=== PATIENT | male | born 1975 | race Hispanic/Latino ===

== ENCOUNTER 2023-10-17 23:21 | Emergency (ER) | payer MEDICAID ==
[~2023-10-17] VITALS: Ht 193 cm; Wt 178.3 kg
[2023-10-18 00:22] LABS: CREATININE 1.4 mg/dL (0.5-1.3); POTASSIUM 3.5 mmol/L (3.5-5.1)
[2023-10-18 00:30] LABS: BASOPHILS # (AUTO) 0.06 K/uL (0.00-0.20); BASOPHILS % (AUTO) 0.6 % (0.0-5.0); EOSINOPHILS # (AUTO) 0.13 K/uL (0.00-0.70); EOSINOPHILS % (AUTO) 1.2 % (0.0-8.0); IMMATURE GRANULOCYTE ABSOLUTE 0.04 K/uL (0-1); LYMPHOCYTES # (AUTO) 2.2 K/uL (1.0-4.8); LYMPHOCYTES % (AUTO) 19.8 % (21.0-51.0); MEAN CORPUSCULAR HGB CONC 35.1 g/dL (32.0-36.0); MEAN CORPUSCULAR VOLUME 88.2 fL (79-99); MONOCYTES # (AUTO) 0.8 K/uL (0.1-1.0); MONOCYTES % (AUTO) 7.4 % (3.0-13.0); NEUTROPHILS # (AUTO) 7.7 K/uL (1.8-7.7); NEUTROPHILS % (AUTO) 70.6 % (40.0-77.0); PLATELET COUNT (AUTO) 292 K/uL (130-400); RED BLOOD CELL COUNT(AUTO) 4.65 MIL/uL (4.50-6.20); RED CELL DISTRIBUTION WIDTH 13.9 % (11.0-15.5); WHITE BLOOD COUNT (AUTO) 10.9 K/uL (4.8-10.8)
[2023-10-18 00:35] LABS: ALBUMIN 4.1 g/dL (3.5-5.0); BILIRUBIN,TOTAL 1.1 mg/dL (0.2-1.0); COVID19 (SARS ANTIGEN RAPID) PRESUMPTIVE NEGATIVE (NEGATIVE); INFLUENZA TYPE A Negative For Type A (NEGATIVE); INFLUENZA TYPE B Negative For Type B (NEGATIVE); TOTAL PROTEIN, SERUM 7.4 g/dL (6.0-8.3)
[2023-10-18 00:50] LABS: INR 0.96 (0.85-1.15); PROTHROMBIN TIME 11.4 SEC (9.6-11.6)
[2023-10-18 00:51] LABS: PARTIAL THROMBOPLASTIN TIME 26.8 SEC (26.3-35.5)
[2023-10-18 00:54] LABS: B-TYPE NATRIURETIC PEPTIDE 9 pg/mL (0-100)
[2023-10-18] MEDS: LABETALOL 20MG SYG IV ONE (00:54)
[2023-10-18] MEDS ORDERED: AZIT250T PO (01:58)
[2023-10-18] MEDS: ASPIRIN 81MG CHEW TAB PO ONE (02:12)
[2023-10-18] MEDS: 0.9% NACL 500ML IV.SOLN 500 ML IV ONE (02:27)
[2023-10-18 03:01] VITALS: BP 164/89; PULSE 77; RESP 18; O2SAT 98
[2023-10-18] MEDS ORDERED: ASPIRIN 81MG CHEW TAB PO SCH (09:00)
== END 2023-10-18 03:17 | disposition home or self-care (01) ==
LOC: EDH 23:21
DX: J18.9 Pneumonia, unspecified organism (principal); I10 Essential (primary) hypertension; J06.9 Acute upper respiratory infection, unspecified; R07.89 Other chest pain; R74.8 Abnormal levels of other serum enzymes; E03.9 Hypothyroidism, unspecified; Z79.82 Long term (current) use of aspirin
CPT/HCPCS: 99285; 71045; 87426; 82550; 83735; 84484 ×2; 80053; 83880; 85025; 85378; 85610; 85730; 87804 ×2; 36415; 93005; 96374; J7040

== ENCOUNTER 2024-06-01 14:42 | Emergency (ER) | payer MEDICAID ==
[~2024-06-01] VITALS: Ht 193 cm; Wt 172.4 kg
[~2024-06-01 14:42] MED LIST: AZIT250T PO
--- NOTE | 2024-06-01 14:48 | ERN ---
ED Note History of Present Illness Stated Complaint: HIGH BP Time Seen by MD: 14:44 Dictation: PATIENT IS A 49-YEAR-OLD MALE COMING IN TODAY WITH COMPLAINTS OF HAVING ELEVATED BLOOD PRESSURE OFF AND ON FOR THE LAST SEVERAL DAYS. NO FEVER NO CHILLS NO NAUSEA VOMITING NO CHEST PAIN. STATES HE DID HAVE A UPPER RESPIRATORY INFECTION A FEW DAYS AGO AND WENT [place] [facility] AND BOUGHT SOME AZITHROMYCIN AND IT MADE HIM FEEL BETTER. STATES HE HAS TAKEN HIS BLOOD PRESSURE MEDICATIONS TODAY, HIS PRIMARY CARE DOCTOR IS IN [facility] STATES HE HAS NOT SEEN HIS PRIMARY CARE DOCTOR IN ONE YEAR. STATES HE JUST MOVED BACK TO [place] FROM [place] AND HAS NOT BEEN BACK TO SEE HIS PRIMARY CARE. Allergies: Coded Allergies: Penicillins (Unverified Allergy, Unknown, 06/01/24) amoxicillin (Unverified Allergy, Unknown, 06/01/24) Home Meds Active Scripts Hydralazine HCl (Hydralazine HCl) 100 Mg Tablet, 1 TAB PO BID for 30 Days, #60 TAB 0 Refills ONE TABLET BY MOUTH TWICE A DAY Prov:RMEY WEST NP 06/01/24 Clonidine HCl (Clonidine HCl) 0.3 Mg Tablet, 0.3 MG PO BID for 30 Days, #60 TAB Prov:REMY WETS NP 06/01/24 Azithromycin (Zithromax) 250 Mg Tablet, 250 MG PO AD for 5 Days, #6 TAB Take 2 250 mg tablets on day 1, then take 1 250mg tablets daily for 4 days Prov:MACIEJ MONREAL MD 10/18/23 Past Medical History Past Medical History: Hypertension, Hypothyroid Additional Past Medical Hx: HX OF MALIN BARRE, SLEEP APNEA Surgical History: None Social History: ETOH RN Note Reviewed/Agreed w/PFSH: Yes Review of System Dictation CONSTITUTIONAL: NEGATIVE EXCEPT FOR HPI HEAD/FACE: NEGATIVE EXCEPT FOR HPI EENT: NEGATIVE EXCEPT FOR HPI RESPIRATORY: NEGATIVE EXCEPT FOR HPI GASTROINTESTINAL/ABDOMINAL: NEGATIVE EXCEPT FOR HPI GENITOURINARY: NEGATIVE EXCEPT FOR HPI MUSCULOSKELETAL: NEGATIVE EXCEPT FOR HPI INTEGUMENTARY: NEGATIVE EXCEPT FOR HPI NEUROLOGICAL/PSYCH: NEGATIVE EXCEPT FOR HPI HEMATOLOGIC/LYMPHATIC: NEGATIVE EXCEPT FOR HPI ALL SYSTEMS NEGATIVE, EXCEPT NOTED ABOVE. 13 POINT REVIEW OF SYSTEMS ASSESSED AND ALL NEGATIVE EXCEPT FOR ABOVE. Initial Vital Sign VS Vital Signs Date Time Temp Pulse Resp B/P (MAP) Pulse Ox O2 Delivery O2 Flow Rate FiO2 06/01/24 14:48 99.3 106 18 243/161 98 Room Air 0 06/01/24 15:44 21 Physical Exam Dictation VITAL SIGNS REVIEWED GENERAL APPEARANCE: ALERT, ORIENTED X 3, NO ACUTE DISTRESS, WELL DEVELOPED, NOURISHED. MORBID OBESITY HEAD AND FACE: NON-TRAUMATIC. EYES: PERRL, PINK CONJUNCTIVAS, EYELID NO TRAUMA, ANTERIOR CHAMBER WITH ARCUS SENILIS. EARS: PINNAS INTACT AND NO SIGNS OF TRAUMA OR ERYTHEMA EAR CANALS CLEAR AND NO DISCHARGE TM NO ERYTHEMA NOSE: NO DISCHARGE, NO BLEEDING. OROPHARYNX: MOUTH NORMAL, TONGUE PINK, PHARYNX CLEAR,NO ERYTHEMA, TONSILS NO EXUDATES, NO ABSCESSES NOTED, MUCOUS MEMBRANE MOIST NECK: SUPPLE, NON-TENDER, NO THYROMEGALY, NO MASSES, NO JVD, NO BRUITS BREAST:DEFERRED CHEST:NO TENDERNESS, NO CREPITUS, NO PARADOXICAL MOVEMENT, NO RETRACTIONS LUNGS:CLEAR, WELL-VENTILATED, SYMMETRIC, NO RALES, NO WHEEZING, NO RHONCHI, NO STRIDOR, GOOD BREATH SOUNDS BILATERALLY HEART: REGULAR RATE, REGULAR RHYTHM, NO MURMUR, NO GALLOPS VASCULAR: NO PERIPHERAL EDEMA, ABDOMEN: SOFT, POSITIVE BOWEL SOUNDS, NONDISTENDED, NO GUARDING, NONTENDER, NO REBOUND, NO MASSES NO HEPATOMEGALY, NO SPLENOMEGALY, NO CLARKE'S SIGN, NO HERNIAS. RECTAL: DEFERRED GENITAL: DEFERRED NEUROLOGICAL: NORMAL SPEECH, MOTOR FUNCTION INTACT, SENSORY FUNCTION INTACT MUSCULOSKELETAL: NECK NONTENDER, FULL RANGE OF MOTION, BACK NONTENDER, FULL RA NGE OF MOTION, EXTREMITIES: NONTENDER, FULL RANGE OF MOTION SKIN: COLOR PINK, DRY, NO TURGOR, NO RASH, NO LACERATIONS, NO ABRASIONS, NO CONTUSIONS. LYMPHATIC: DEFERRED Results (Laboratory/Radiology) Laboratory/Radiology Laboratory Tests Test 06/01/24 15:35 White Blood Count 11.2 K/uL (4.8-10.8) H Red Blood Count 4.74 MIL/uL (4.50-6.20) Hemoglobin 15.1 g/dL (14.0-18.0) Hematocrit 44.6 % (42-54) Mean Corpuscular Volume 94.1 fL (79-99) Mean Corpuscular Hemoglobin 31.9 pg (27.0-33.0) Mean Corpuscular Hemoglobin Concent 33.9 g/dL (32.0-36.0) Red Cell Distribution Width 13.1 % (11.0-15.5) Platelet Count 298 K/uL (130-400) Mean Platelet Volume 9.9 fL (7.5-10.5) Immature Granulocyte % (Auto) 0.4 % (0-1) Neutrophils (%) (Auto) 74.1 % (40.0-77.0) Lymphocytes (%) (Auto) 19.9 % (21.0-51.0) L Monocytes (%) (Auto) 3.9 % (3.0-13.0) Eosinophils (%) (Auto) 1.0 % (0.0-8.0) Basophils (%) (Auto) 0.7 % (0.0-5.0) Neutrophils # (Auto) 8.3 K/uL (1.8-7.7) H Lymphocytes # (Auto) 2.2 K/uL (1.0-4.8) Monocytes # (Auto) 0.4 K/uL (0.1-1.0) Eosinophils # (Auto) 0.11 K/uL (0.00-0.70) Basophils # (Auto) 0.08 K/uL (0.00-0.20) Absolute Immature Granulocyte (auto 0.04 K/uL (0-1) Nucleated Red Blood Cells 0.0 % (0.0-0.19) Sodium Level 140 mmol/L (136-145) Potassium Level 3.7 mmol/L (3.5-5.1) Chloride Level 103 mmol/L (101-111) Carbon Dioxide Level 27 mmol/L (21-32) Blood Urea Nitrogen 11 mg/dL (7-18) Creatinine 1.3 mg/dL (0.5-1.3) Glomerular Filtration Rate Calc 67 mL/min (>90) Random Glucose 96 mg/dL (70-105) Total Calcium 8.7 mg/dL (8.5-10.1) Troponin I High Sensitivity 9 ng/L (4-75) Labs Reviewed?: Yes EKG: (+) NSR EKG Comment: NORMAL SINUS RHYTHM/HEART RATE 93/AXIS NORMAL/NO ECTOPY ED Course ED Course Orders Procedure Category Date Status Time Cbc With Differential LAB 06/01/24 Complete 14:46 Chest 1vw RAD 06/01/24 Resulted 14:46 12 Lead Ekg Tracing- EKG 06/01/24 Resulted Technical 14:46 Troponin I High LAB 06/01/24 Complete Sensitivity 14:46 Basic Metabolic Panel LAB 06/01/24 Complete 14:46 Clonidine Hcl 0.3 Mg PHA 06/01/24 Complete Tablet (Catapres 0. 16:30 Nitroglycerin 0.4mg PHA 06/01/24 Complete Sl Tab (Nitrostat) 16:19 Acetaminophen 500mg PHA 06/01/24 Complete Tab (Tylenol 500mg T 17:16 Acetaminophen 500mg PHA 06/01/24 Complete Tab (Tylenol 500mg T 17:30 Current Medications Medications (Trade) Dose Ordered Sig/Zay Route PRN Reason Start Time Stop Time Status Last Admin Dose Admin Acetaminophen (TYLenol 500MG TAB) 500 mg STK-MED ONCE .ROUTE 06/01/24 17:16 06/01/24 17:17 DC Acetaminophen (TYLenol 500MG TAB) 1,000 mg ONCE ONCE PO 06/01/24 17:30 06/01/24 17:22 DC 06/01/24 17:22 Clonidine HCl (CATApres 0.3 MG TAB) 0.3 mg ONCE ONCE PO 06/01/24 16:30 06/01/24 16:31 DC 06/01/24 16:30 Nitroglycerin (Nitrostat) 0.4 mg ONCE STAT SL 06/01/24 16:19 06/01/24 16:22 DC 06/01/24 16:30 Vital Signs Date Time Temp Pulse Resp B/P (MAP) Pulse Ox O2 Delivery O2 Flow Rate FiO2 06/01/24 17:12 98.1 89 18 151/101 98 Room Air* 0 06/01/24 17:06 80 18 172/104 96 Room Air* 0 06/01/24 16:30 83 182/118 06/01/24 15:44 99.3 89 19 206/139 98 Room Air* 0 06/01/24 14:48 99.3 106 18 243/161 98 Room Air 0 1640/BLOOD PRESSURE 182/118. PATIENT TAKING HYDRALAZINE 100 MG DAILY, IT WILL BE INCREASED TO 100 MG B.I.D., CLONIDINE WE WILL BE INCREASED TO 0.3 B.I.D. AND CONTINUE HIS LOSARTAN 100 MG DAILY. TOLD TO SEE HIS DOCTOR IN [place] IN THE NEXT 1-2 DAYS. HEART Score Response (Comments) Value Age: 45-65yrs (+1) 1 Risk Factors: 1-2 risk factors (+1) 1 Initial Troponin: Normal limit (0) 0 Total 2 Medical Decision Making MDM MDM: DIFFERENTIAL DIAGNOSIS: ACS/AMI/ACCELERATED HYPERTENSION/ELECTROLYTE IMBALANCE/DEHYDRATION RATIONALE: TESTS CONSIDERED AND ORDERED SECONDARY TO SHARED DECISION MAKING INCLUDE: EKG/LABS PREVIOUS OUTSIDE RECORDS REVIEWED: OLD ER VISITS. REVIEWED RISK OF COMPLICATION AND/OR MORBIDITY OR MORTALITY OF PATIENT MANAGEMENT: NONE MEDICATIONS-PER MEDICATION RECONCILIATION NEED FOR HOSPITALIZATION: PATIENT DOES NOT MEET CRITERIA FOR HOSPITALIZATION. NO NEED FOR EMERGENCY MAJOR/MINOR SURGERY: NO THERE ARE NO SOCIAL CONCERNS WITH THIS PATIENT. PRESCRIPTION DRUG MANAGEMENT HYDRALAZINE 100 MG P.O. B.I.D., CLONIDINE 0.3 P.O. B.I.D. CONTINUE LOSARTAN 100 MG DAILY. PRESCRIPTIONS WILL INCLUDE SYMPTOMATIC CARE PATIENT'S PRIOR EXTERNAL MEDICAL RECORDS FROM OTHER ER VISITS WERE REVIEWED BY ME INDICATED. PRIOR TESTING AND RESULTS FROM PREVIOUS VISITS WERE REVIEWED. PRIOR TESTS WERE TAKEN INTO ACCOUNT WITH MEDICAL DECISION MAKING AND RESOURCE UTILIZATION, INDEPENDENT HISTORIAN/HISTORIANS WERE USED TO OBTAIN COMPLETE MEDICAL HISTORY. I INDEPENDENTLY INTERPRETED THE TEST THAT WERE PERFORMED, RESULTS WERE REVIEWED BY ME AND CONSIDERED FINDINGS ON RADIOLOGY IF ORDERED. MEDICAL MANAGEMENT AND EXAMINATION INTERPRETATION DISCUSSIONS WERE HAD BY ME WITH OTHER QUALIFIED HEALTHCARE PROFESSIONALS INDICATED FOR THE PATIENT'S CARE. DX & DISP Disposition: Discharge Departure Impression: Primary Impression: Morbidly obese Condition: Stable Scripts Hydralazine HCl (Hydralazine HCl) 100 Mg Tablet 1 TAB PO BID for 30 Days, #60 TAB 0 Refills ONE TABLET BY MOUTH TWICE A DAY Prov: REMY WEST PHOTONICS ENGINEERING TECHNICIAN 06/01/24 Clonidine HCl (Clonidine HCl) 0.3 Mg Tablet 0.3 MG PO BID for 30 Days, #60 TAB Prov: REMY WEST PHOTONICS ENGINEERING TECHNICIAN 06/01/24 Additional Instructions: FOLLOW-UP WITH PRIMARY CARE PROVIDER IN 1 TO 2 DAYS. TAKE MEDICATIONS DIRECTED HERE IN THE EMERGENCY ROOM. OKAY TO CONTINUE HOME MEDICATIONS UNLESS OTHERWISE DISCUSSED DURING YOUR VISIT IN THE EMERGENCY ROOM TODAY. RETURN TO YOUR NEAREST EMERGENCY ROOM IF SYMPTOMS WORSEN OR IF THERE IS NO IMPROVEMENT. CALL 911 IF YOU NEED IMMEDIATE ASSISTANCE. TAKE TYLENOL OR MOTRIN GUSZ-IEX-PLMUSGE NEEDED AND IF NO CONTRAINDICATIONS ARE PRESENT. INCREASE ORAL HYDRATION. A WOUND CULTURE OR URINE CULTURE WAS ORDERED HERE IN THE EMERGENCY ROOM DEPARTMENT PLEASE FOLLOW-UP WITH PRIMARY CARE PROVIDER AND ADVISE THEM TO GET REPEAT PORTS FROM OUR FACILITY. IF YOU HAD ANY CARLOS WRAP/SPLINTS THAT WERE APPLIED HERE, PLEASE DO NOT REMOVE THEM UNTIL YOU SEE YOUR PRIMARY CARE OR SPECIALTY. CONTINUE LOSARTAN DIRECTED. TAKE HYDRALAZINE 100 MG 2 TIMES A DAY. INCREASE CLONIDINE TO 0.3 MG TWICE A DAY. FOLLOW UP WITH YOUR PRIMARY CARE DOCTOR IN [facility] ON MONDAY. Referrals: EVARISTO MENDEZ (PCP) Time of Disposition: 16:45 I have reviewed the case, and I agree with, Diagnosis and Plan REMY WEST NP Jun 01, 2024 14:48 MONICA CALERO DO Jun 01, 2024 17:30
--- NOTE | 2024-06-01 15:14 | HMCIMG ---
CHEST 1VW CLINICAL HISTORY: SHORTNESS COMPARISON: 10/16/2023 TECHNIQUE: Single view of the chest was obtained. FINDINGS: Lungs are clear. The cardiac size upper limits of normal mildly enlarged but stable. The bony structures are within normal limits. IMPRESSION: Stable borderline heart size.
[2024-06-01 15:47] LABS: BASOPHILS # (AUTO) 0.08 K/uL (0.00-0.20); BASOPHILS % (AUTO) 0.7 % (0.0-5.0); EOSINOPHILS # (AUTO) 0.11 K/uL (0.00-0.70); HEMATOCRIT 44.6 % (42-54); IMMATURE GRANULOCYTE ABSOLUTE 0.04 K/uL (0-1); LYMPHOCYTES # (AUTO) 2.2 K/uL (1.0-4.8); LYMPHOCYTES % (AUTO) 19.9 % (21.0-51.0); MEAN CORPUSCULAR HEMOGLOBIN 31.9 pg (27.0-33.0); MEAN CORPUSCULAR HGB CONC 33.9 g/dL (32.0-36.0); MEAN CORPUSCULAR VOLUME 94.1 fL (79-99); MONOCYTES # (AUTO) 0.4 K/uL (0.1-1.0); MONOCYTES % (AUTO) 3.9 % (3.0-13.0); NEUTROPHILS # (AUTO) 8.3 K/uL (1.8-7.7); NEUTROPHILS % (AUTO) 74.1 % (40.0-77.0); PLATELET COUNT (AUTO) 298 K/uL (130-400); RED BLOOD CELL COUNT(AUTO) 4.74 MIL/uL (4.50-6.20); RED CELL DISTRIBUTION WIDTH 13.1 % (11.0-15.5); WHITE BLOOD COUNT (AUTO) 11.2 K/uL (4.8-10.8)
[2024-06-01 15:56] LABS: CREATININE 1.3 mg/dL (0.5-1.3); POTASSIUM 3.7 mmol/L (3.5-5.1)
--- NOTE | 2024-06-01 16:15 | EKG ---
[facility] Test Date: 2024-06-01 Test Time: 14:55:17 Pat Name: RANDY ANSARI Department: [facility] Room: Gender: M Extra Hand: [id number] : 1975 Requested By: REMY WEST Order Number: [id number] Reading MD: Satnam Byrd Measurements Intervals [place] Rate: 95 P: 43 MA: 171 QRS: -91 QRSD: 157 T: 5 QT: 411 QTc: 517 Interpretive Statements Sinus rhythm RBBB and LAFB Compared to ECG 10/17/2023 23:37:42 No significant changes Electronically Signed On 06-01-2024 16:51:39 ASSISTED LIVING NURSING DIRECTOR by Satnam Byrd Please click the below link to view image of tracing.
[2024-06-01] MEDS: cloNIDine HCL 0.3 MG TABLET PO ONE (16:30)
[2024-06-01] MEDS: NITROGLYCERIN 0.4 MG SL TAB SL STA (16:30)
[2024-06-01] MEDS ORDERED: HYDR100T15 PO ×2 (16:46→16:50)
[2024-06-01] MEDS ORDERED: CLON0.3T PO (16:46)
[2024-06-01 17:12] VITALS: BP 151/101; PULSE 89; RESP 18; TEMP 98; O2SAT 98
[2024-06-01] MEDS: acetaMINOPHEN 500 MG TABLET ONE (17:22)
[2024-06-01] MEDS: acetaMINOPHEN 500 MG TABLET PO ONE (17:22)
== END 2024-06-01 17:22 | disposition home or self-care (01) ==
LOC: EDH 14:42
DX: E66.01 Morbid (severe) obesity due to excess calories (principal); E03.9 Hypothyroidism, unspecified; G47.30 Sleep apnea, unspecified; I10 Essential (primary) hypertension; Z79.899 Other long term (current) drug therapy; Z88.0 Allergy status to penicillin
CPT/HCPCS: 36415; 71045; 80048; 84484; 85025; 93005; 99285